=== PATIENT | female | born 1965 | race Hispanic/Latino ===

== ENCOUNTER → 2018-06-17 | Outpatient (CLI) | payer BC ==
--- NOTE | 2018-06-17 14:37 | NUR ---
MBSS COMPLETE. -S/S OF ASPIRATION. RECOMMEND REGULAR, THIN LIQUID DIET; PILLS WHOLE WITH LIQUIDS. PATIENT INFORMATION: Pt IS A 53 Y.O. FEMALE REFERRED FOR A BEDSIDE DYSPHAGIA EVALUATION SECONDARY TO C/O DIFFICULTY SWALLOWING FOODS AND LIQUIDS. Pt AAOX3 AND SERVED THE PRIMARY INFORMANT FOR MEDICAL AND SOCIAL HISTORY. Pt DESCRIBES GLOBUS SENSATION WHEN SHE IS SWALLOWING PILLS. PT REPORTS THAT SHE FEELS THAT THE PILLS ARE STUCK IN THE BACK OF HER THROAT WHEN SHE SWALLOWS. Pt HAS A PAST MEDICAL HISTORY SIGNIFICANT FOR DIABETES, HYPOTHYROIDISM, KNEE SURGERY X3 AND GERD WITH POLYS. Pt REPORTS SHE JUST STARTED HER MEDICATION FOR HER GERD. MBSS INTERPRETATION: SWALLOW FUNCTION AND EFFICIENCY WITHIN FUNCTIONAL LIMITS. ORAL MOTOR STRENGTH, COORDINATION, AND ROM WITHIN FUNCTIONAL LIMITS. LARYNGEAL ELEVATION/EXCURSION STRONG WITH TIMELY PHARYNGEAL RESPONSE. NO OVERT SIGNS OR SYMPTOMS OF ASPIRATION PRESENT DURING MBSS. A-P VIEW: REFLUX OF BOLUS IN MID 1/3 OF ESOPHAGUS WITH INCREASED BOLUS TRANSIT TIME (MORE THAN 25 SECONDS). PT WITH GLOBUS SENSATION AT THIS TIME. TRIALS: TRIAL #1: TSP PUREED: GOOD TRIAL #2: TSP PUDDING: GOOD TRIAL #3: TSP MIXED: GOOD TRIAL #4: COOKIE: GOOD TRIAL #5: CUP SIP THIN LIQUIDS: GOOD TRIAL #6: A-P TSP PUDDING: OBSERVATIONS DESCRIBED ABOVE RECOMMENDATIONS: 1. REGULAR TEXTURE, THIN LIQUID DIET; PILLS WHOLE WITH LIQUIDS. 2. COMPENSATORY STRATEGIES (PROPHYLAXIS): *SEATED AT 90 DEGREE ANGLE *SLOW RATE *REMAIN UPRIGHT 30 MINUTES AFTER MEAL TIMES 3. GI CONSULT DUE TO A-P FINDINGS G-CODES SWALLOWING: [id number] Addendum: 06/17/18 at [address] Amended: Links added.
== END | disposition home or self-care (01) ==
LOC: RAH 09:55
PROVIDERS: ATTEND Internal Medicine Gastroenterology
DX: R13.12 Dysphagia, oropharyngeal phase (principal); E11.9 Type 2 diabetes mellitus without complications; E03.9 Hypothyroidism, unspecified; K21.9 Gastro-esophageal reflux disease without esophagitis
CPT/HCPCS: 74230; 92611